=== PATIENT | male | born 1935 | race African-American/Black ===

== ENCOUNTER 2018-01-05 14:47 | Outpatient (CLI) | payer BC, MEDICARE ==
[2018-01-05 15:53] LABS: BASOPHILS % (AUTO) 1.5 % (0.0-2.0); EOSINOPHILS % (AUTO) 3.9 % (0.0-3.0); HEMOGLOBIN 16.2 G/DL (14.2-18.0); LYMPHOCYTES % (AUTO) 33.6 % (20.0-45.0); MEAN CORPUSCULAR VOLUME 96 FL (80-99); MONOCYTES % (AUTO) 10.5 % (1.0-10.0); NEUTROPHILS % (AUTO) 50.4 % (45.0-75.0); PLATELET COUNT 240 K/UL (150-450); RED CELL DISTRIBUTION WIDTH 12.7 % (11.6-14.8); WHITE BLOOD COUNT 5.7 K/UL (4.8-10.8)
[2018-01-05 16:14] LABS: ALANINE AMINOTRANSFERASE 17 U/L (12-78); ALBUMIN 3.8 G/DL (3.4-5.0); ALBUMIN/GLOBULIN RATIO 0.8 (1.0-2.7); ALKALINE PHOSPHATASE 101 U/L (46-116); ANION GAP 8 mmol/L (5-15); ASPARTATE AMINO TRANSFERASE 14 U/L (15-37); BILIRUBIN,TOTAL 0.4 MG/DL (0.2-1.0); BLOOD UREA NITROGEN 20 mg/dL (7-18); CARBON DIOXIDE 29 MMOL/L (21-32); CHLORIDE 101 MMOL/L (98-107); CREATININE 1.5 MG/DL (0.55-1.30); POTASSIUM 3.8 MMOL/L (3.5-5.1); SODIUM 138 MMOL/L (136-145)
--- NOTE | 2018-01-05 16:29 | Diagnostic Imaging Report ---
Indication: Cough Comparison: None 2 views of the chest obtained. Findings: Cardiomediastinal silhouette and pulmonary vascularity are within normal limits for age. Aorta is moderately ectatic consistent with atherosclerotic disease. The diaphragmatic contour is smooth and costophrenic angles are sharp. No pleural effusions are identified. The bones are unremarkable. Impression: No acute disease
--- NOTE | 2018-01-08 12:19 | Cardiology Report ---
APPROVED REPORT EKG Measurement Heart [id number] Sinus rhythm with premature supraventricular complexes Nonspecific T wave abnormality Abnormal ECG
== END 2018-01-05 16:47 | disposition home or self-care (01) ==
LOC: RAD 14:47
DX: R05 Cough (principal); I49.9 Cardiac arrhythmia, unspecified
CPT/HCPCS: 36415; 71046; 80053; 82607; 82652; 82747; 83735; 84443; 84550; 85025; 85651; 86592; 93005

== ENCOUNTER 2018-03-09 12:05 | Outpatient (CLI) | payer BC ==
--- NOTE | 2018-03-09 13:45 | Diagnostic Imaging Report ---
Indication: Cognitive dysfunction Technique: sagittal T1 fast spin echo, axial T1 FLAIR, axial T2 FLAIR, axial T2 FS PROPELLER, axial T2* GRE, axial diffusion weighted images. ADC and exponential ADC maps generated Comparison: none Findings: No abnormal areas of restricted diffusion to suggest acute infarction. No acute hemorrhage or edema. No mass effect nor midline shift. There is age-related enlargement of the ventricles and extra axial CSF spaces. There is bilateral periventricular deep white matter T2 hyperintensity, compatible with chronic small vessel ischemic changes. The vascular flow voids are preserved. Visualized orbits and sinuses are unremarkable. Impression: Chronic and age-related changes, as described Negative for acute intracranial bleed or mass effect
== END 2018-03-09 14:05 | disposition home or self-care (01) ==
LOC: MRI 12:05
DX: G31.84 Mild cognitive impairment of uncertain or unknown etiology (principal); R05 Cough
CPT/HCPCS: 70551